=== PATIENT | female | born 1955 | race Caucasian/White ===

== ENCOUNTER → 2021-04-25 | Outpatient (CLI) | payer OTHER ==
[2021-04-26 03:06] LABS: RUBEOLA (MEASLES) IGG >300.0 AU/mL (Immune >16.4)
== END | disposition home or self-care (01) ==
LOC: LABMN 09:49
PROVIDERS: ATTEND Internal Medicine
DX: Z02.1 Encounter for pre-employment examination (principal)
CPT/HCPCS: 86706; 86735; 86762; 86765; 86787

== ENCOUNTER 2021-09-15 19:35 | Emergency (ER) | payer SELFPAY ==
[~2021-09-15] VITALS: Ht 165.1 cm; Wt 77.3 kg
[2021-09-15] MEDS ORDERED: PERTUSS(ACELL),DIPH,TET VAC/PF 0.5 ML SYRINGE IM. ONE (20:30)
[2021-09-15] MEDS ORDERED: LIDOCAINE 1% 10 ML VIAL PERC ONE (20:30)
[2021-09-15] MEDS ORDERED: BACITRACIN 0.9 GM PACKET OINTMENT TP ONE (21:45)
[2021-09-15] MEDS ORDERED: BACI28OI29 TP (21:59)
[2021-09-15 22:04] VITALS: BP 138/78
== END 2021-09-15 22:07 | disposition home or self-care (01) ==
LOC: EMS 19:40
DX: S61.012A Laceration without foreign body of left thumb without damage to nail, initial encounter (principal); W45.8XXA Other foreign body or object entering through skin, initial encounter; Y93.89 Activity, other specified; Y92.89 Other specified places as the place of occurrence of the external cause; Y99.8 Other external cause status
CPT/HCPCS: 12001; 90471; 90715; 99283; J3490

== ENCOUNTER 2021-09-17 12:34 | Emergency (ER) | payer OTHER ==
[~2021-09-17] VITALS: Ht 162.6 cm; Wt 79.5 kg
[~2021-09-17 12:34] MED LIST: BACI28OI29 TP
[2021-09-17 12:43] VITALS: BP 120/71
== END 2021-09-17 14:10 | disposition home or self-care (01) ==
LOC: EMS 12:39
DX: S61.012D Laceration without foreign body of left thumb without damage to nail, subsequent encounter (principal); X58.XXXD Exposure to other specified factors, subsequent encounter
CPT/HCPCS: 99282; Z7502

== ENCOUNTER 2021-09-22 14:07 | Emergency (ER) | payer OTHER ==
[~2021-09-22] VITALS: Ht 162.6 cm; Wt 81.8 kg
[2021-09-22 14:19] VITALS: BP 155/107
== END 2021-09-22 15:17 | disposition home or self-care (01) ==
LOC: EMS 14:07
DX: S61.012D Laceration without foreign body of left thumb without damage to nail, subsequent encounter (principal); Z48.02 Encounter for removal of sutures; W45.8XXD Other foreign body or object entering through skin, subsequent encounter
CPT/HCPCS: 99281; Z7502